=== PATIENT | female | born 2000 | race African-American/Black ===

== ENCOUNTER 2020-10-19 12:50 | Emergency (ER) | payer OTHER ==
[~2020-10-19] VITALS: Ht 165.1 cm; Wt 133.8 kg
[2020-10-19] MEDS ORDERED: FLONASE 0.05%50 MCG NASAL (14:10)
[2020-10-19 14:15] VITALS: BP 131/77
== END 2020-10-19 14:15 | disposition home or self-care (01) ==
LOC: ER 12:50
DX: R51.9 Headache, unspecified (principal); R00.2 Palpitations; R06.02 Shortness of breath; Z87.891 Personal history of nicotine dependence